=== PATIENT | female | born 1985 | race Caucasian/White ===

== ENCOUNTER → 2017-11-10 | Outpatient (CLI) | payer BC | LOC: FIMAGING 14:07 | PROVIDERS: ATTEND Obstetrics & Gynecology | DX: O30.041 Twin pregnancy, dichorionic/diamniotic, first trimester (principal); O99.281 Endocrine, nutritional and metabolic diseases complicating pregnancy, first trimester; E28.2 Polycystic ovarian syndrome; Z3A.12 12 weeks gestation of pregnancy ==

== ENCOUNTER → 2018-01-01 | Outpatient (CLI) | payer BC | LOC: FIMAGING 07:21 | PROVIDERS: ATTEND Obstetrics & Gynecology | DX: O30.042 Twin pregnancy, dichorionic/diamniotic, second trimester (principal); Z3A.20 20 weeks gestation of pregnancy ==

== ENCOUNTER → 2018-01-29 | Outpatient (CLI) | payer BC | LOC: FIMAGING 13:43 | PROVIDERS: ATTEND Obstetrics & Gynecology | DX: O30.042 Twin pregnancy, dichorionic/diamniotic, second trimester (principal); O26.872 Cervical shortening, second trimester; Z3A.24 24 weeks gestation of pregnancy ==

== ENCOUNTER → 2018-02-26 | Outpatient (CLI) | payer BC | LOC: FIMAGING 12:43 | PROVIDERS: ATTEND Obstetrics & Gynecology | DX: O30.042 Twin pregnancy, dichorionic/diamniotic, second trimester (principal); O26.872 Cervical shortening, second trimester; Z3A.28 28 weeks gestation of pregnancy ==

== ENCOUNTER → 2018-03-26 | Outpatient (CLI) | payer BC | LOC: FIMAGING 12:13 | PROVIDERS: ATTEND Obstetrics & Gynecology | DX: O30.043 Twin pregnancy, dichorionic/diamniotic, third trimester (principal); O26.873 Cervical shortening, third trimester; Z3A.31 31 weeks gestation of pregnancy ==